=== PATIENT | female | born 1995 | race Caucasian/White ===

== ENCOUNTER 2017-01-23 09:03 | Emergency (ER) | payer BC ==
[2017-01-23 09:21] VITALS: RESP 20
[2017-01-23 09:57] LABS: BASOPHILS % (AUTO) 1 % (0-3); EOSINOPHILS % (AUTO) 0 % (0-9); HEMATOCRIT 35 % (35-47); MEAN CORPUSCULAR HGB CONC 32.2 gm/dl (32.0-36.0); NEUTROPHILS % (AUTO) 73.9 % (37-80)
[2017-01-23 10:08] LABS: ANISOCYTOSIS SLIGHT AMT; MEAN CORPUSCULAR VOLUME 72 fL (81-99)
[2017-01-23 10:16] LABS: ALBUMIN 3.3 gm/dl (3.4-5.0); ALT 19 IU/L (14-63); CALCIUM 8.8 mg/dl (8.5-10.1); GLOM FILT RATE 98 mL/min (>60); POTASSIUM 3.9 mMol/L (3.5-5.1); SALICYLATE < 2.8 mg/dl (2.8-30.0); SODIUM 136 mMol/L (136-145)
[2017-01-23 11:39] LABS: BILIRUBIN,URINE 1+ (NEGATIVE); COLOR,URINE Yellow; GLUCOSE, URINE (UA) NEGATIVE (NEGATIVE); KETONES,URINE 4+ (NEGATIVE); LEUKOCYTE ESTERASE ,URINE 1+ (NEGATIVE); NITRATE,URINE NEGATIVE (NEGATIVE); OCCULT BLOOD,URINE NEGATIVE (NEG-TRACE); PH,URINE 5.5; UROBILINOGEN,URINE 0.2 (0.2-1.0 EU)
[2017-01-23 12:01] VITALS: BP 133/85; PULSE 75; TEMP 97.3; O2SAT 99
[2017-01-23 12:09] LABS: APPEARANCE,URINE SL CLOUDY
[2017-01-23 12:10] LABS: AMPHETAMINES NEGATIVE (NEGATIVE); ICTOTEST,URINE NEGATIVE (NEGATIVE); METHADONE NEGATIVE (NEGATIVE); OPIATES(OP13) NEGATIVE (NEGATIVE); OXYCODONE(OXY) NEGATIVE (NEGATIVE); PROPOXYPHENE(PPX) NEGATIVE (NEGATIVE); RBC,URINE NEG (0-3AV/HPF); TRICYCLIC ANTIDEPRESSANTS NEGATIVE (NEGATIVE)
== END 2017-01-23 13:55 ==
LOC: ED 09:03
DX: R45.851 Suicidal ideations (principal)
CPT/HCPCS: 36415; 80053; 80305; 80307; 81001; 84443; 84703; 85025; 99284